=== PATIENT | male | born 1985 | race Caucasian/White ===

== ENCOUNTER 2021-04-14 10:59 | Emergency (ER) | payer OTHER, SELFPAY ==
[2021-04-14 11:03] VITALS: BP 148/79; PULSE 83; RESP 18; TEMP 36.8; O2SAT 99
--- NOTE | 2021-04-14 13:20 | PC.NURSE ---
Continue to await provider assessment. Pt given cool clothe and room darkened for comfort.
[2021-04-14] MEDS: KETOROLAC (*BKC) 60 MG/2 ML VIAL IM (14:29)
--- NOTE | 2021-04-14 14:31 | PC.NURSE ---
Pt now complaining of a severe migraine headache , states because his eye was bothering him. Pain med given IM as ordered. Room darkened for pt comfort.
--- NOTE | 2021-04-14 14:46 | ED.GENADULT ---
HPI - General Adult General Chief complaint: Eye Problems Stated complaint: eye injury Time Seen by Provider: 04/14/21 11:57 Source: patient Mode of arrival: ambulatory Limitations: no limitations History of Present Illness HPI narrative: Patient is a 35-year-old male presented with chief complaint of left eye pain that began prior to arrival after getting drywall particles in his eye. Patient reports rinsing his eye for about 15-20 minutes after. He reports that he has burning to the eye and tearing. Patient has also been rubbing his eye. Patient denies blurry vision except for when he begins to tear. Patient denies any other injuries or concerns. Related Data Home Medications Medication Instructions Recorded Confirmed [facility] 04/14/21 Allergies Allergy/AdvReac Type Severity Reaction Status Date / Time No Known Allergies Allergy Verified 04/14/21 11:33 Review of Systems Review of Systems: CONSTITUTIONAL: Denies fever, chills, or sweats. EYES: Reports of pain and tearing denies visual changes, redness, or discharge. ENT: Denies rhinorrhea, congestion, sore throat, or otalgia. CARDIOVASCULAR: Denies chest pain, palpitations, or edema. RESPIRATORY: Denies cough or dyspnea. GASTROINTESTINAL: Denies abdominal pain, nausea, vomiting, or diarrhea. GENITOURINARY: Denies dysuria or hematuria. SKIN: Denies rash or itching. MUSCULOSKELETAL: Denies back pain, joint pain, or myalgia. NEUROLOGIC: Denies headache, numbness, dizziness, or weakness. PSYCHIATRIC: Denies anxiety or depression. Exam Narrative: GENERAL: Well-appearing, well-nourished, and in no acute distress. HEAD: Normocephalic, atraumatic. EYES: PERRLA and EOMI. there is a corneal abrasion to the left from 4-7 o'clock seen with fluorescein stain. No foreign bodies noted. Patient noted to be rubing eye vigorously. ENT: Nares clear, no rhinorrhea or epistaxis. Mucous membranes moist. Oropharynx without tonsillar hypertrophy exudate or other lesions. Bilateral TMs pearly evans nonbulging NECK: Supple. No adenopathy or masses. Range of motion intact. CHEST: Clear to auscultation. No respiratory distress. No wheezes rales or rhonchi HEART: Regular rate and rhythm. EXTREMITIES: Normal range of motion. No edema. SKIN: Warm, dry, no rash. NEURO: No focal deficits. Alert and oriented x3. PSYCH: Normal mood and affect. Course Vital Signs Vital signs: Vital Signs Temperature 98.2 F 04/14/21 11:03 Pulse Rate 83 04/14/21 11:03 Respiratory Rate 18 04/14/21 11:03 Blood Pressure 148/79 H 04/14/21 11:03 Pulse Oximetry 99 04/14/21 11:03 Temperature 98.2 F 04/14/21 11:03 Pulse Rate 83 04/14/21 11:03 Respiratory Rate 18 04/14/21 11:03 Blood Pressure 148/79 H 04/14/21 11:03 Pulse Oximetry 99 04/14/21 11:03 Medical Decision Making MDM Narrative Medical decision making narrative: Patient has a corneal abrasion to the left eye. Patient will be put on antibiotic eyedrops and given naproxen for discomfort. Patient was Toradol injection in emergency department to help with pain and inflammation. Patient also encouraged to apply cool compresses and use saline eyedrops for discomfort. 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 Vital Signs Vital Signs: Vital Signs Temperature 98.2 F 04/14/21 11:03 Pulse Rate 83 04/14/21 11:03 Respiratory Rate 18 04/14/21 11:03 Blood Pressure 148/79 H 04/14/21 11:03 Pulse Oximetry 99 04/14/21 11:03 Temperature 98.2 F 04/14/21 11:03 Pulse Rate 83 04/14/21 11:03 Respiratory Rate 18 04/14/21 11:03 Blood Pressure 148/79 H 04/14/21 11:03 Pulse Oximetry 99 04/14/21 11:03 Discharge Plan Discharge Clinical Impression: Corneal abrasion Patient Disposition: Home, Self-Care Condition: Improved Instructions: Antibiotic Form, Corneal Abrasion (ED) Additional Instructions: Use eyedrops as inst
== END 2021-04-14 14:55 | disposition home or self-care (01) ==
PROVIDERS: Emergency Provider Emergency Medicine; PCP Nurse Practitioner
DX: S05.02XA Injury of conjunctiva and corneal abrasion without foreign body, left eye, initial encounter (principal); W22.8XXA Striking against or struck by other objects, initial encounter
CPT/HCPCS: 96372; 99283; A9270; J1885